=== PATIENT | male | born 1965 | race Caucasian/White ===

== ENCOUNTER 2022-11-28 17:57 | Emergency (ER) | payer SELFPAY ==
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
[2022-11-28 18:02] VITALS: BP 199/132; PULSE 96; RESP 20; TEMP 36.2; O2SAT 97; BMI 31.0
--- NOTE | 2022-11-28 18:05 | ECG_ITS ---
Test Reason : hypertensive Blood Pressure : / mmHG Vent. Rate : 082 BPM Atrial Rate : 082 BPM P-R Int : 162 ms QRS Dur : 094 ms QT Int : 378 ms P-R-T Axes : 015 -21 006 degrees QTc Int : 441 ms Normal sinus rhythm Minimal voltage criteria for LVH, may be normal variant ( R in aVL ) Borderline ECG No previous ECGs available Referred By: Gracia Palafox Electronically Signed By:DEONDRE HALL MD
[2022-11-28 18:24] LABS: MANUAL DIFF FLAG NO
[2022-11-28 18:25] LABS: Basophils Percent Auto 0.5 % (0-2); Eosinophils Percent Auto 0.3 % (0-4); Hematocrit 42.6 % (42.0-52.0); Hemoglobin 14.6 g/dl (14.0-18.0); Imm Gran Abs Auto 0.02 X10*3/uL (0.00-0.03); Imm Gran Pct Auto 0.3 % (0.0-0.4); Lymphocytes Absolute Auto 1.5 X10*3/uL (1.2-4.9); Lymphocytes Percent Auto 19.8 % (20-40); Mean Corpuscular HGB Conc 34.3 g/dl (31.0-36.0); Mean Corpuscular Hemoglobin 33.6 pg (27.0-33.0); Mean Corpuscular Volume 98.2 fL (80.0-98.0); Mean Platelet Volume 9.7 fL (9.4-12.4); Monocytes Absolute Auto 1.1 X10*3/uL (0.1-1.2); Monocytes Percent Auto 14.4 % (2-11); Neutrophils Absolute Auto 4.8 x10*3/uL (2.0-8.3); Neutrophils Percent Auto 64.7 % (45-73); Platelet Count 154 X10*3/uL (160-400); Red Blood Count 4.34 X10*6/uL (4.60-5.80); White Blood Count 7.4 X10*3/uL (4.8-10.8)
[2022-11-28 18:44] LABS: Alanine Aminotransferase 109 U/L (0-40); Albumin Level 4.4 g/dL (3.5-5.0); Alkaline Phosphatase 76 U/L (39-117); Anion Gap 21 (12-20); Aspartate Amino Transferase 69 U/L (5-37); Bilirubin Total 0.7 mg/dL (0.0-1.0); Blood Urea Nitrogen 13 mg/dL (9-16); Calcium 10.2 mg/dL (8.4-10.2); Carbon Dioxide 20 mmol/L (22-29); Chloride 105 mmol/L (96-108); Creatinine Clr Calc Pharmacy 123.6; Estimated Glomerular Filt Rate > 60; Ethanol < 10 mg/dL; Glucose Random 126 mg/dL (60-115); Magnesium 1.6 mg/dL (1.6-2.6); Potassium 3.6 mmol/L (3.3-5.1); Sodium 142 mmol/L (135-145); Total Protein 8.8 g/dL (6.5-8.0)
[2022-11-28 18:47] LABS: Troponin-I High Sensitivity < 2.7 ng/L (<3.5-35.0)
--- NOTE | 2022-11-28 20:00 | PC.NURSE ---
Pt ca&ox4, no signs of distress. family at bedside. Pt ambulates with a steady gait. Plan of care ongoing.
[2022-11-28] MEDS: cloNIDine HCL 0.2 MG TABLET PO (20:36)
[2022-11-28] MEDS: LORazepam 1 MG TABLET 2 MG PO (20:36)
--- NOTE | 2022-11-28 20:38 | PC.NURSE ---
Pt ca&ox4, no signs of distress. remains at bedside. pt medicated per mar. Plan of care ongoing.
[2022-11-28 21:54] VITALS: BP 147/104; PULSE 106; RESP 14
--- NOTE | 2022-11-28 21:56 | PC.NURSE ---
Provider magda notified of pts b/p pf 147/104.
== END 2022-11-28 22:30 | disposition home or self-care (01) ==
PROVIDERS: Registered Nurse Emergency; Emergency Provider Internal Medicine
DX: F10.130 Alcohol abuse with withdrawal, uncomplicated (principal); Y90.0 Blood alcohol level of less than 20 mg/100 ml; I10 Essential (primary) hypertension; F41.9 Anxiety disorder, unspecified; R11.0 Nausea
CPT/HCPCS: 36415; 80053; 80307; 83735; 84484; 85025; 93005; 99283; 99284